=== PATIENT | female | born 1980 | race Caucasian/White ===

== ENCOUNTER 2018-10-23 01:50 | Emergency (ER) | payer MEDICAID ==
[~2018-10-23] VITALS: Ht 152.4 cm; Wt 60.9 kg
[2018-10-23 02:16] VITALS: BP 106/72
== END 2018-10-23 02:54 | disposition left against medical advice (07) ==
LOC: ER 01:50
DX: R07.89 Other chest pain (principal); Z53.21 Procedure and treatment not carried out due to patient leaving prior to being seen by health care provider
CPT/HCPCS: 93005